=== PATIENT | female | born 1980 | race Caucasian/White ===

== ENCOUNTER 2021-03-31 22:08 | Emergency (ER) | payer OTHER ==
[~2021-03-31] VITALS: Ht 162.6 cm; Wt 90.7 kg
[2021-03-31 22:08] VITALS: BP_SYST 149
--- NOTE | 2021-03-31 22:10 | NUR ---
Patient to ER bed 04 to gown for evaluation. Side rails up. Report given to NACHO PORTILLO
--- NOTE | 2021-03-31 23:04 | NUR ---
ER Dr. BELTRÁN at bedside examining patient.
--- NOTE | 2021-04-01 | NUR ---
PATIENT AAOX4 AND AMBULATORY FROM HOME C/O RIGHT SIDED CALF PAIN. STATED IT STARTED AROUND 1500. PT STATES THAT IT IS INTERMITTENT AND COMES AND GO. CURRENTLY STATING 10/10 ON THE PAIN SCALE. VSS.
--- NOTE | 2021-04-01 00:15 | NUR ---
LAB AT BEDSIDE.
--- NOTE | 2021-04-01 00:30 | NUR ---
ULTRASOUND AT BEDSIDE TO DO LOWER EXTREMITY ULTRASOUND.
[2021-04-01 00:49] LABS: CALCIUM 8.6 mg/dL (8.4-11.0); CREATININE 0.96 mg/dL (0.55-1.30); POTASSIUM 3.5 mmol/L (3.5-5.1)
[2021-04-01 00:51] LABS: BASOPHILS # (AUTO) 0.1 K/uL (0.0-0.2); BASOPHILS % (AUTO) 0.9 % (0.0-2.0); EOSINOPHILS # (AUTO) 0.1 K/uL (0.0-0.4); EOSINOPHILS % (AUTO) 1.3 % (0.0-4.0); HEMATOCRIT 37.9 % (36-48); HEMOGLOBIN 12.5 g/dL (12.0-16.0); LYMPHOCYTES # (AUTO) 2.3 K/uL (1.0-5.5); LYMPHOCYTES % (AUTO) 24.8 % (20.5-51.5); MEAN CORPUSCULAR HEMOGLOBIN 30 pg (27-31); MEAN CORPUSCULAR HGB CONC 33 % (32-36); MEAN CORPUSCULAR VOLUME 91 fL (79.0-98.0); MONOCYTES # (AUTO) 0.8 K/uL (0.0-1.0); MONOCYTES % (AUTO) 8.1 % (1.7-9.3); NEUTROPHILS # (AUTO) 6.1 K/uL (1.8-7.7); NEUTROPHILS % (AUTO) 64.9 % (40.0-70.0); PLATELET COUNT (AUTO) 333 K/uL (130-430); RED BLOOD CELL COUNT(AUTO) 4.16 MIL/uL (4.2-6.2); WHITE BLOOD COUNT (AUTO) 9.4 K/uL (4.8-10.8)
[2021-04-01 00:53] LABS: PROTHROMBIN TIME 10.2 SECS (9.5-12.5)
[2021-04-01 01:47] VITALS: BP_SYST 149
--- NOTE | 2021-04-01 01:47 | NUR ---
Patient given written and verbal discharge instructions and verbalizes understanding. DR.PEEK MARY FORBES discussed with patient the results and treatment provided. Patient in stable condition. ID arm band removed. Patient educated on pain management and to follow up with PMD. Pain Scale 0/10 Opportunity for questions provided and answered. Medication side effect fact sheet provided.
== END 2021-04-01 01:47 | disposition home or self-care (01) ==
LOC: SED 22:08
DX: I83.93 Asymptomatic varicose veins of bilateral lower extremities (principal); M79.661 Pain in right lower leg; I10 Essential (primary) hypertension; Z79.899 Other long term (current) drug therapy
CPT/HCPCS: 36415; 80048; 85025; 85379; 85610-TC; 85730-TC; 93971; 99284